=== PATIENT | male | born 1970 | race Caucasian/White ===

== ENCOUNTER 2023-08-17 04:16 | Emergency (ER) | payer OTHER ==
[~2023-08-17] VITALS: Ht 170.1 cm; Wt 65.8 kg
[~2023-08-17 04:16] MED LIST: ATARAX25 MG PO; BACTRIM DS 8001 TA1 PO; CLEOCIN150 MG PO; CLINDAMYCIN HC300 MG PO; DURICEF500 MG PO; EES400 MG PO; KEFLEX500 MG PO; MOTRIN800 MG PO; NO DAILY MEDS; PREDNICOT20 MG PO; Peridex 473 ML473 ML PO; TYLENOL650 M1 PO; ULTRAM50 MG PO; VICODIN 5/500 505 MG PO; VICODIN 500 MG-1 TAB PO; ZOFRAN ODT8 MG PO
[2023-08-17] MEDS ORDERED: Ketorolac Tromethamine 60 MG/2 ML VIAL IM ONE (04:30)
[2023-08-17] MEDS ORDERED: METHOCARBAMOL 500 MG TAB PO ONE (04:30)
[2023-08-17] MEDS ORDERED: METHOCARBAMOL750 M1 PO (04:38)
[2023-08-17] MEDS ORDERED: NAPROXEN250 MG PO (04:38)
[2023-08-17] MEDS ORDERED: NAPROXEN 250 MG TAB PO ONE (04:40)
== END 2023-08-17 04:50 | disposition home or self-care (01) ==
LOC: ED 04:16
DX: S39.012A Strain of muscle, fascia and tendon of lower back, initial encounter (principal); Z88.0 Allergy status to penicillin; Z98.890 Other specified postprocedural states; X58.XXXA Exposure to other specified factors, initial encounter; Y93.89 Activity, other specified; Y92.009 Unspecified place in unspecified non-institutional (private) residence as the place of occurrence of the external cause; Y99.8 Other external cause status

== ENCOUNTER 2025-03-03 12:55 | Emergency (ER) | payer OTHER ==
[~2025-03-03] VITALS: Ht 172.7 cm; Wt 63.5 kg
[~2025-03-03 12:55] MED LIST changes: +METHOCARBAMOL750 M1 PO; +NAPROXEN250 MG PO
[2025-03-03] MEDS ORDERED: Ondansetron4 MG PO (15:55)
[2025-03-03] MEDS ORDERED: PERCOCET 5-3251 EACH PO (15:55)
== END 2025-03-03 17:28 | disposition home or self-care (01) ==
LOC: ED 12:55
DX: S82.142A Displaced bicondylar fracture of left tibia, initial encounter for closed fracture (principal); R55 Syncope and collapse; Z88.0 Allergy status to penicillin; Z79.899 Other long term (current) drug therapy; W20.8XXA Other cause of strike by thrown, projected or falling object, initial encounter; Y93.89 Activity, other specified; Y92.89 Other specified places as the place of occurrence of the external cause; Y99.8 Other external cause status